=== PATIENT | male | born 1995 | race Caucasian/White ===

== ENCOUNTER 2016-08-07 18:52 | Day surgery (SDC) | payer BC ==
[2016-08-07] MEDS ORDERED: ENALAPRIL MALE2.5 M1 PO (19:20)
[2016-08-07 19:59] LABS: URINE BILIRUBIN NEGATIVE (NEG); URINE BLOOD NEGATIVE (NEG); URINE GLUCOSE (UA) NEGATIVE (NEG); URINE KETONE MODERATE (NEG); URINE LEUKOCYTE ESTERASE NEGATIVE (NEG); URINE NITRITE NEGATIVE (NEG); URINE PROTEIN NEGATIVE (NEG)
[2016-08-07 20:01] LABS: URINE APPEARANCE CLEAR; URINE COLOR YELLOW
[2016-08-07 20:09] LABS: ANION GAP 13 mmol/L (0-20); BLOOD UREA NITROGEN 10 mg/dl (6-24); CALCIUM 9.4 mg/dl (8.5-10.5); CARBON DIOXIDE-VENOUS 29 mmol/L (22-32); CHLORIDE 101 mmol/l (96-110); CREATININE 0.98 mg/dl (0.60-1.30); GLUCOSE 99 mg/dL (70-110); POTASSIUM 3.8 mmol/L (3.7-5.1); SODIUM 139 mmol/L (135-145); eGFR VALUE FOR BLACK >90 mL/Min
[2016-08-08] MEDS ORDERED: PERCOCET 5-3251 EACH PO (14:24)
[2016-08-08] MEDS ORDERED: COLACE100 M1 PO (14:25)
== END 2016-08-08 14:48 ==
LOC: EDMED 18:52 → EMR2 20:39 → ORW 20:55 → PACU 22:46 → CAR1 23:09
PROVIDERS: Emergency Medicine
PROC: 0DTJ4ZZ Resection of Appendix, Percutaneous Endoscopic Approach (ICD-10-PCS; principal; 2016-08-07)
DX: K35.80 Unspecified acute appendicitis (principal); Z79.899 Other long term (current) drug therapy
CPT/HCPCS: J0694; J1650; J1885; J2270; J2405; J7030